=== PATIENT | male | born 1970 | race Caucasian/White ===

== ENCOUNTER 2020-04-07 17:56 | Emergency (ER) | payer MEDICARE ==
--- NOTE | 2020-04-07 18:00 | ERPHSYRPT ---
- History of Present Illness Time Seen by Provider: 04/07/20 17:59 Historian: patient Exam Limitations: no limitations Physician History: This is a 49-year-old obese white male has a history of rib pain bilaterally 3 weeks ago. He did not experience any trauma. He has no chest pain. He has no shortness of breath. Approximately 3 days ago he was having some left upper quadrant abdominal pain and associated constipation. He did take laxatives today and had to bowel movements that he described as better than over the last few days but not normal for him. Patient has a history of gout, hypertension and hypothyroidism. Patient is here to evaluate this left upper quadrant abdominal pain. Timing/Duration: week(s), worse Quality: sharpness, stabbing Abdominal Pain Onset Location: [facility] Pain Radiation: no radiation Severity of Pain-Max: moderate Severity of Pain-Current: moderate Modifying Factors: Worsens With: coughing, vomiting Associated Symptoms: No chest pain, No diarrhea, No loss of appetite, No nausea, No vomiting Previous symptoms: no prior history Allergies/Adverse Reactions: No Known Drug Allergies Allergy (Unverified 03/18/13 14:23) Home Medications: Allopurinol 300 mg [Zyloprim 300 mg] 300 mg PO DAILY 03/18/13 [History] Amlodipine Besylate 5 mg [Norvasc 5 mg] 5 mg PO DAILY 03/18/13 [History] Atenolol 100 mg PO DAILY 03/18/13 [History] HydrALAzine HCL 25 MG TAB [Apresoline 25 MG TABLET] 25 mg PO BID 03/18/13 [History] Hydrocodone Bit/Acetaminophen [Castana 10-325 Tablet] 1 each PO QID PRN 03/18/13 [History] Levothyroxine Sodium [Tirosint] 75 mcg PO DAILY 03/18/13 [History] Hx Tetanus, Diphtheria Vaccination/Date Given: No (UNKNOWN) Hx Influenza Vaccination/Date Given: No Hx Pneumococcal Vaccination/Date Given: No Travel Risk - International Travel Have you traveled outside of the country in past 3 weeks: No - Coronavirus Screening Are you exhibiting any of the following symptoms?: No Close contact with a COVID-19 positive Pt in past 14-21 Days: No - Review of Systems Constitutional: No Symptoms Eyes: No Symptoms Ears, Nose, & Throat: No Symptoms Respiratory: No Symptoms Cardiac: No Symptoms Abdominal/Gastrointestinal: Abdominal Pain (Left upper quadrant), Constipation, No Nausea, No Vomiting, No Diarrhea Genitourinary Symptoms: No Symptoms Musculoskeletal: No Symptoms Skin: No Symptoms Neurological: No Symptoms Psychological: No Symptoms Endocrine: No Symptoms Hematologic/Lymphatic: No Symptoms Immunological/Allergic: No Symptoms All Other Systems: Reviewed and Negative - Past Medical History Pertinent Past Medical History: Yes Neurological History: No Pertinent History ENT History: No Pertinent History Cardiac History: Hypertension Endocrine Medical History: Hypothyroidism Musculoskeletal History: Arthritis GI Medical History: No Pertinent History History: No Pertinent History Psycho-Social History: No Pertinent History - Past Surgical History Past Surgical History: Yes Neuro Surgical History: No Pertinent History Cardiac: No Pertinent History Respiratory: No Pertinent History Gastrointestinal: No Pertinent History Genitourinary: No Pertinent History Musculoskeletal: Orthopedic Surgery Other Surgical History: BACK - Social History Smoking Status: Never smoker Exposure to second hand smoke: No Alcohol Use: None Drug Use: none Patient Lives Alone: No Significant Family History: hypertension - Nursing Vital Signs Nursing Vital Signs: Initial Vital Signs Temperature 98.3 F 04/07/20 18:08 Pulse Rate 80 04/07/20 18:08 Respiratory Rate 22 04/07/20 18:08 Blood Pressure 169/121 04/07/20 18:08 O2 Sat by Pulse Oximetry 95 04/07/20 18:08 Pain Scale Pain Intensity 8 - Physical Exam General Appearance: mild distress, alert, anxiety, obese Eye Exam: PERRL/EOMI, eyes nml inspection Ears, Nose, Throat Exam: normal ENT inspection, moist mucous membranes Neck Exam: normal inspection, non-tender, supple, full range of motion Respiratory Exam: normal breath sounds, lungs clear, airway intact, No chest tenderness, No respiratory distress Cardiovascular Exam: regular rate/rhythm, normal heart sounds, normal peripheral pulses Gastrointestinal/Abdomen Exam: soft, normal bowel sounds, tenderness, guarding (Left upper quadrant), No rebound Rectal Exam: not done Back Exam: normal inspection, normal range of motion, No CVA tenderness, No vertebral tenderness Extremity Exam: normal inspection, normal range of motion, pelvis stable Neurologic Exam: alert, oriented x 3, cooperative, claims support specialist II-XII nml as tested, normal mood/affect, nml cerebellar function, nml station & gait, sensation nml Skin Exam: normal color, warm, dry Lymphatic Exam: No adenopathy SpO2 Interpretation: normal O2 Delivery: Room Air Ordered Tests: Active Orders 24 hr Category Date Time Status IV Insertion STAT Care 04/07/20 18:51 Active ABDOMEN AND PELVIS W/0 CONTRAS [CT] Stat Exams 04/07/20 18:53 Taken CHEST 1 VIEW (PORTABLE) Stat Exams 04/07/20 18:53 Taken AMYLASE Stat Lab 04/07/20 18:45 Completed CBC W DIFF Stat Lab 04/07/20 18:45 Completed CMP Stat Lab 04/07/20 18:45 Completed LIPASE Stat Lab 04/07/20 18:45 Completed Lactic Acid Stat Lab 04/07/20 19:20 Completed PROTIME WITH INR Stat Lab 04/07/20 18:45 Completed UA W/RFX UR CULTURE Stat Lab 04/07/20 18:55 Completed Medication Summary Generic Name Dose Route Start Last Admin Trade Name Freq PRN Reason Stop Dose Admin Sodium Chloride 1,000 mls @ 100 mls/hr 04/07/20 19:00 04/07/20 19:12 Sodium Chloride 0.9% 1000 Ml IV 05/07/20 18:59 100 mls/hr .Q10H DANNI Administration Discontinued Medications Generic Name Dose Route Start Last Admin Trade Name Freq PRN Reason Stop Dose Admin Hydromorphone HCl 1 mg 04/07/20 19:27 04/07/20 19:30 Hydromorphone 1 Mg/Ml Ampule IV 04/07/20 19:28 1 mg STAT ONE Administration Hydromorphone HCl Confirm 04/07/20 19:29 Hydromorphone 1 Mg/Ml Ampule Administered 04/07/20 19:30 Dose 1 mg .ROUTE .STK-MED ONE Ondansetron HCl 4 mg 04/07/20 19:27 04/07/20 19:30 Zofran 4 Mg/2 Ml Vial IV 04/07/20 19:28 4 mg STAT ONE Administration Ondansetron HCl Confirm 04/07/20 19:28 Zofran 4 Mg/2 Ml Vial Administered 04/07/20 19:29 Dose 4 mg .ROUTE .STK-MED ONE Lab/Rad Data: Laboratory Result Diagrams 04/07/20 18:45 04/07/20 18:45 Laboratory Results 04/07/20 04/07/20 04/07/20 Range/Units 19:20 18:55 18:45 WBC (4.0-10.5) K/mm3 RBC (4.1-5.6) M/mm3 Hgb (12.5-18.0) gm/dl Hct (42-50) % MCV (78-100) fl MCH (26-32) pg MCHC (32-36) g/dl RDW (11.5-14.0) % Plt Count (150-450) K/mm3 MPV (7.5-11.0) fl Gran % (36.0-66.0) % Eos # (Auto) (0-0.5) Absolute Lymphs (auto) (1.0-4.6) Absolute Monos (auto) (0.0-1.3) Lymphocytes % (24.0-44.0) % Monocytes % (0.0-12.0) % Eosinophils % (0.00-5.0) % Basophils % (0.0-0.4) % Absolute Granulocytes (1.4-6.9) Basophils # (0-0.4) PT 11.7 (8.83-12.87) SECONDS INR 1.04 (0.8-3.0) Sodium (137-145) mmol/L Potassium (3.5-5.1) mmol/L Chloride (98-107) mmol/L Carbon Dioxide (22-30) mmol/L Anion Gap (5-15) MEQ/L BUN (9-20) mg/dL Creatinine (0.66-1.25) mg/dL Estimated GFR ML/MIN Glucose (74-106) mg/dL Lactic Acid 2.1 H (0.4-2.0) Calcium (8.4-10.2) mg/dL Total Bilirubin (0.2-1.3) mg/dL AST (17-59) U/L ALT (0-50) U/L Alkaline Phosphatase (38-126) U/L Serum Total Protein (6.3-8.2) g/dL Albumin (3.5-5.0) g/dL Amylase (30-110) U/L Lipase (23-300) U/L Urine Color YELLOW (YELLOW) Urine Appearance CLEAR (CLEAR) Urine pH 5.0 (5-6) Ur Specific [place] 1.018 (1.005-1.025) Urine Protein NEGATIVE (Negative) Urine Ketones NEGATIVE (NEGATIVE) Urine Blood NEGATIVE (0-5) [place]/ul Urine Nitrite NEGATIVE (NEGATIVE) Urine Bilirubin NEGATIVE (NEGATIVE) Urine Urobilinogen NEGATIVE (0-1) mg/dL Ur Leukocyte Esterase NEGATIVE (NEGATIVE) Urine WBC (Auto) NONE (0-5) /HPF Urine RBC (Auto) NONE (0-2) /HPF U Epithel Cells (Auto) NONE (FEW) /HPF Urine Bacteria (Auto) NONE (NEGATIVE) /HPF Urine Culture Reflexed NO (NO) Urine Glucose >=500 (NEGATIVE) mg/dL 04/07/20 04/07/20 Range/Units 18:45 18:45 WBC 9.9 (4.0-10.5) K/mm3 RBC 5.59 (4.1-5.6) M/mm3 Hgb 17.6 (12.5-18.0) gm/dl Hct 53.0 H (42-50) % MCV 94.8 (78-100) fl MCH 31.5 (26-32) pg MCHC 33.2 (32-36) g/dl RDW 13.9 (11.5-14.0) % Plt Count 157 (150-450) K/mm3 MPV 9.8 (7.5-11.0) fl Gran % 73.7 H (36.0-66.0) % Eos # (Auto) 0.38 (0-0.5) Absolute Lymphs (auto) 1.61 (1.0-4.6) Absolute Monos (auto) 0.57 (0.0-1.3) Lymphocytes % 16.3 L (24.0-44.0) % Monocytes % 5.8 (0.0-12.0) % Eosinophils % 3.9 (0.00-5.0) % Basophils % 0.3 (0.0-0.4) % Absolute Granulocytes 7.28 H (1.4-6.9) Basophils # 0.03 (0-0.4) PT (8.83-12.87) SECONDS INR (0.8-3.0) Sodium 140 (137-145) mmol/L Potassium 4.4 (3.5-5.1) mmol/L Chloride 106 (98-107) mmol/L Carbon Dioxide 25 (22-30) mmol/L Anion Gap 12.3 (5-15) MEQ/L BUN 28 H (9-20) mg/dL Creatinine 1.52 H (0.66-1.25) mg/dL Estimated GFR 52.5 ML/MIN Glucose 183 H (74-106) mg/dL Lactic Acid (0.4-2.0) Calcium 10.0 (8.4-10.2) mg/dL Total Bilirubin 0.60 (0.2-1.3) mg/dL AST 84 H (17-59) U/L ALT 89 H (0-50) U/L Alkaline Phosphatase 129 H (38-126) U/L Serum Total Protein 8.1 (6.3-8.2) g/dL Albumin 4.6 (3.5-5.0) g/dL Amylase 69 (30-110) U/L Lipase 95 (23-300) U/L Urine Color (YELLOW) Urine Appearance (CLEAR) Urine pH (5-6) Ur Specific [place] (1.005-1.025) Urine Protein (Negative) Urine Ketones (NEGATIVE) Urine Blood (0-5) [place]/ul Urine Nitrite (NEGATIVE) Urine Bilirubin (NEGATIVE) Urine Urobilinogen (0-1) mg/dL Ur Leukocyte Esterase (NEGATIVE) Urine WBC (Auto) (0-5) /HPF Urine RBC (Auto) (0-2) /HPF U Epithel Cells (Auto) (FEW) /HPF Urine Bacteria (Auto) (NEGATIVE) /HPF Urine Culture Reflexed (NO) Urine Glucose (NEGATIVE) mg/dL - Progress Progress: improved, re-examined Progress Note: 04/07/20 20:27 Chest x-ray reveals no evidence of any acute pulmonary process. CAT scan of the abdomen and pelvis shows no acute intra-abdominal process. Counseled pt/family regarding: lab results, diagnosis, need for follow-up, rad results - Departure Departure Disposition: Home Clinical Impression: Left upper quadrant abdominal pain Condition: Stable Critical Care Time: No Referrals: SHAW CUADRA, METER READER [Primary Care Provider] - Additional Instructions: Take your medications as prescribed. Drink plenty of fluids. Follow-up with your primary care physician tomorrow to make arrangements for scheduling a colonoscopy.
[2020-04-07] MEDS ORDERED: Sodium Chloride 0.9% 1000 ML 1,000 ML IV SCH (19:00)
[2020-04-07 19:04] LABS: Absolute Neutrophil Ct (ANC) 7.28 (1.4-6.9); BASOPHIL % 0.3 % (0.0-0.4); Basophil (Absolute #) 0.03 (0-0.4); Eosinophil % 3.9 % (0.00-5.0); Eosinophil (Absolute #) 0.38 (0-0.5); Hemoglobin 17.6 gm/dl (12.5-18.0); Lymphocyte (Absolute #) 1.61 (1.0-4.6); Lymphocytes % 16.3 % (24.0-44.0); Mean Cell Volume 94.8 fl (78-100); Mean Corpuscular Hemoglobin 31.5 pg (26-32); Mean Corpuscular Hgb Concent. 33.2 g/dl (32-36); Mean Platelet Volume 9.8 fl (7.5-11.0); Monocyte (Absolute #) 0.57 (0.0-1.3); Monocytes % 5.8 % (0.0-12.0); Neutrophil % 73.7 % (36.0-66.0); Platelet Count 157 K/mm3 (150-450); Red Blood Count 5.59 M/mm3 (4.1-5.6); Red Cell Distribution Width 13.9 % (11.5-14.0); White Blood Count 9.9 K/mm3 (4.0-10.5)
[2020-04-07 19:05] LABS: INR 1.04 (0.8-3.0); PROTIME 11.7 SECONDS (8.83-12.87)
[2020-04-07] MEDS ORDERED: Sodium Chloride 0.9% 1000 ML 1,000 ML ONE (19:08)
[2020-04-07 19:09] LABS: ALBUMIN 4.6 g/dL (3.5-5.0); ANION GAP 12.3 MEQ/L (5-15); BILIRUBIN,TOTAL 0.6 mg/dL (0.2-1.3); Creatinine 1 1.52 mg/dL (0.66-1.25); Potassium 4.4 mmol/L (3.5-5.1); Total Protein 8.1 g/dL (6.3-8.2)
[2020-04-07 19:18] VITALS: O2SAT 98
[2020-04-07] MEDS ORDERED: Hydromorphone 1 mg/ml Ampule IV ONE (19:27)
[2020-04-07] MEDS ORDERED: Zofran 4 MG/2 ML VIAL IV ONE (19:27)
[2020-04-07] MEDS ORDERED: Zofran 4 MG/2 ML VIAL ONE (19:28)
[2020-04-07 19:29] LABS: Appearance CLEAR (CLEAR); Bilirubin NEGATIVE (NEGATIVE); Blood NEGATIVE Ery/ul (0-5); Glucose >=500 mg/dL (NEGATIVE); Ketones NEGATIVE (NEGATIVE); Leukocyte Esterase NEGATIVE (NEGATIVE); Nitrite NEGATIVE (NEGATIVE); Protein,Urine Dip NEGATIVE (Negative); Specific Gravity 1.018 (1.005-1.025); Urobilinogen NEGATIVE mg/dL (0-1)
[2020-04-07] MEDS ORDERED: Hydromorphone 1 mg/ml Ampule ONE (19:29)
[2020-04-07 20:36] VITALS: BP 165/114; PULSE 88
--- NOTE | 2020-04-08 08:45 | XRAY ---
Indication: Right chest pain. Comparison: None Portable chest demonstrates minimal lingula fibrosis/scarring. No focal infiltrate, consolidation, or large effusion. Heart immediate structures within normal limits. Bony thorax intact with mild degenerative changes throughout the spine. Impression: Nonacute chest with chronic features.
--- NOTE | 2020-04-08 08:49 | XRAY ---
Indication: Left upper quadrant pain and swelling. No known injury. Multiple contiguous axial images obtained through the abdomen and pelvis without contrast as ordered. Comparison: None Lung bases demonstrates bibasilar fibrosis/scarring without focal infiltrate or effusion. Heart is not enlarged. Noncontrasted stomach and bowel loops appear nonobstructed. Normal appendix. No free fluid/air. Diffuse fatty hepatomegaly measuring 24 cm. Also 15 cm splenomegaly. Remaining gallbladder, pancreas, adrenal glands, kidneys, ureters, bladder, and aorta appear unremarkable for noncontrast exam. Osseous structures demonstrates moderate degenerative changes throughout the thoracolumbar spine. Previous L4-S1 fusion surgery with intact bilateral posterior spinal hardware. Small bilateral fatty inguinal hernias, left greater than right. Impression: 1. Fatty hepatomegaly, splenomegaly, bilateral fatty inguinal hernias, and chronic bony findings. 2. Remaining CT abdomen/pelvis without contrast exam is negative.
== END 2020-04-07 20:45 | disposition home or self-care (01) ==
LOC: ED 17:56
DX: R10.12 Left upper quadrant pain (principal)
CPT/HCPCS: 36000; 36415; 71045; 74176; 80053; 81001; 82150; 83605; 83690; 85025; 85610; 96374; 96375; 99284; J1170; J2405